=== PATIENT | female | born 1955 | race Caucasian/White ===

== ENCOUNTER 2017-07-30 19:57 | Emergency (ER) | payer OTHER, MEDICAID ==
[~2017-07-30] VITALS: Ht 157.5 cm; Wt 68.0 kg
[2017-07-30 19:57] VITALS: BP_SYST 169
--- NOTE | 2017-07-30 20:00 | NUR ---
Patient brought in by ambulance BLS for bleeding to left foot. Patient states she is currently taking Xeralto for DVT. Patient states no hx of DM or injury to site. No active bleeding noted. No other symptoms or complaints at this time.
--- NOTE | 2017-07-30 20:00 | NUR ---
Patient to ER bed 2 for evaluation. Side rails up.
--- NOTE | 2017-07-30 20:43 | NUR ---
KYE Sawyer at bedside for medical evaluation.
[2017-07-30 21:40] VITALS: BP_SYST 152
--- NOTE | 2017-07-30 21:40 | NUR ---
Patient given written and verbal discharge instructions and verbalizes understanding. ER MD discussed with patient the results and treatment provided. Patient in stable condition. ID arm band removed. Patient educated on pain management and to follow up with PMD. Pain Scale 2/10 tolerable to patient. Opportunity for questions provided and answered.
== END 2017-07-30 21:40 | disposition home or self-care (01) ==
LOC: SED 19:57
DX: I83.92 Asymptomatic varicose veins of left lower extremity (principal); I10 Essential (primary) hypertension; K21.9 Gastro-esophageal reflux disease without esophagitis; Z86.718 Personal history of other venous thrombosis and embolism; Z90.710 Acquired absence of both cervix and uterus
CPT/HCPCS: 99283